=== PATIENT | male | born 1935 | race Caucasian/White ===

== ENCOUNTER 2021-04-25 13:49 | Emergency (ER) | payer OTHER, MEDICARE ==
[2021-04-25 16:52] LABS: #Eosinphils 0.3 10x3/uL (0.0-0.5); #Monocytes 1.1 10x3/uL (0.0-1.1); #Neutrophils 10.2 10x3/uL (1.5-8.4); %Basophils 0.3 % (0.0-2.0); %Eosinophils 2.3 % (0.0-6.0); %Lymphocytes 12.5 % (18.0-47.0); %Monocytes 8.2 % (0.0-10.0); %Neutrophils 75.7 % (40.0-75.0); Mean Corpuscular HGB CONC 32.8 g/dL (32.0-36.0); Mean Corpuscular Hemoglobin 31.9 pg (27.0-33.0); Mean Corpuscular Volume 97.3 fl (81.2-95.1); Mean Platelet Volume 9.6 fl (7.4-10.4); Platelet Count 223 10x3/uL (150-450); RBC Distribution Width 12.9 % (11.5-14.5); Red Blood Cell (RBC) Count 4.07 10x6/uL (4.32-5.72); White Blood Cell (WBC) Count 13.5 10x3/uL (3.5-10.5)
[2021-04-25] MEDS ORDERED: Labetalol HCl 100 MG/20 ML VIAL ONE (16:53)
[2021-04-25 17:07] LABS: INR-International Normal Ratio 0.9; PTT 23.8 sec (22.0-33.0); Prothrombin Time 10.2 sec (9.5-12.1)
[2021-04-25 17:09] LABS: ALT (SGPT) 40 U/L (8-55); AST (SGOT) 24 U/L (5-34); Albumin 3.7 g/dL (3.4-4.8); Alkaline Phosphatase 68 U/L (40-110); Anion Gap 11 mmol/L (10-20); BUN (Urea Nitrogen) 22 mg/dL (8.4-25.7); Bilirubin, Total 0.5 mg/dL (0.2-1.2); Calc. Creatinine Clearance 0 mL/min (70-130); Calcium 9.4 mg/dL (7.8-10.44); Carbon Dioxide 27 mmol/L (23-31); Chloride 105 mmol/L (98-107); Globulin 2.5 g/dL (2.4-3.5); Glucose 100 mg/dL (83-110); Potassium 4.2 mmol/L (3.5-5.1); Protein, Total 6.2 g/dL (5.8-8.1); Sodium 139 mmol/L (136-145)
[2021-04-25] MEDS ORDERED: Lorazepam 2 MG/ML VIAL ONE (17:56)
[2021-04-25] MEDS ORDERED: Haloperidol Lactate 5 MG/ML VIAL ONE (20:22)
[2021-04-25 21:17] LABS: Bilirubin Neg (Negative); Blood, Urine 250 (Negative); Clarity Slightly Cloudy (Clear); Glucose, Urine (Dipstick) Normal (Negative); Ketone, Urine Negative (Negative); Leukocyte Negative (Negative); Nitrite Negative (Negative); Protein, Urine (Dipstick) 30 mg/dl (Neg-Trace); Urobilinogen Normal mg/dL (Less than 2)
[2021-04-25] MEDS ORDERED: Ondansetron PF 4 MG/2 ML Vial ONE (21:17)
[2021-04-25 21:43] LABS: Bacteria/HPF Rare-Few HPF (None Seen); Mucous/LPF 1+ LPF (<2+); RBC/HPF Greater than 50 HPF (0-3); Squamous Epithelial 0-3 HPF (0-3); WBC/HPF 0-3 HPF (0-3)
[2021-04-25] MEDS ORDERED: hydrALAZINE 20 MG/ML VIAL ONE (22:58)
== END 2021-04-25 23:07 | disposition short-term general hospital (02) ==
LOC: CSHERS 13:49
DX: S06.6X1A Traumatic subarachnoid hemorrhage with loss of consciousness of 30 minutes or less, initial encounter (principal); R11.2 Nausea with vomiting, unspecified; S01.01XA Laceration without foreign body of scalp, initial encounter; W01.10XA Fall on same level from slipping, tripping and stumbling with subsequent striking against unspecified object, initial encounter; I10 Essential (primary) hypertension; E78.00 Pure hypercholesterolemia, unspecified; F03.90 Unspecified dementia, unspecified severity, without behavioral disturbance, psychotic disturbance, mood disturbance, and anxiety; E11.9 Type 2 diabetes mellitus without complications
CPT/HCPCS: 12001; 70450; 72125; 80053; 81003; 81015; 85025; 85610; 85730; 87086; 93005; 96374; 96375; J0360; J1630; J2060; J2405